=== PATIENT | male | born 2000 | race Caucasian/White ===

== ENCOUNTER 2020-09-19 16:27 | Outpatient (REF) | payer OTHER, SELFPAY | END 2020-09-19 16:28 | disposition home or self-care (01) | LOC: HO.LAB 16:27 | PROVIDERS: Visit Provider Internal Medicine | DX: Z20.822 Contact with and (suspected) exposure to COVID-19 (principal) | CPT/HCPCS: 36415; C9803; U0003 ==

== ENCOUNTER 2022-05-14 19:03 | Emergency (ER) | payer OTHER, SELFPAY ==
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
[2022-05-14 19:17] VITALS: BP 143/81; PULSE 73; RESP 18; TEMP 36.7; O2SAT 97; BMI 30.5
[2022-05-14 19:26] LABS: MANUAL DIFF FLAG NO
[2022-05-14 19:28] LABS: Basophils Absolute Auto 0.1 X10*3/uL (0.0-0.2); Basophils Percent Auto 0.7 % (0-2); Eosinophils Absolute Auto 0.1 X10*3/uL (0.0-0.4); Eosinophils Percent Auto 1.8 % (0-4); Hemoglobin 14.9 g/dl (14.0-18.0); Imm Gran Abs Auto 0.02 X10*3/uL (0.00-0.03); Imm Gran Pct Auto 0.3 % (0.0-0.4); Lymphocytes Absolute Auto 2.5 X10*3/uL (1.2-4.9); Lymphocytes Percent Auto 33.6 % (20-40); Mean Corpuscular HGB Conc 35.5 g/dl (31.0-36.0); Mean Corpuscular Volume 84.7 fL (80.0-98.0); Mean Platelet Volume 11.1 fL (9.4-12.4); Monocytes Absolute Auto 0.5 X10*3/uL (0.1-1.2); Monocytes Percent Auto 6.4 % (2-11); Neutrophils Absolute Auto 4.2 x10*3/uL (2.0-8.3); Neutrophils Percent Auto 57.2 % (45-73); Platelet Count 247 X10*3/uL (160-400); Red Blood Count 4.96 X10*6/uL (4.60-5.80); Red Cell Distribution Width 11.4 % (11.0-16.0); White Blood Count 7.3 X10*3/uL (4.8-10.8)
[2022-05-14 19:44] LABS: Anion Gap 16 (12-20); Blood Urea Nitrogen 12 mg/dL (9-16); Calcium 9.2 mg/dL (8.4-10.2); Carbon Dioxide 19 mmol/L (22-29); Chloride 107 mmol/L (96-108); Creatinine Clr Calc Pharmacy 144.8; Estimated Glomerular Filt Rate > 60; Glucose Random 116 mg/dL (60-115); Potassium 4.1 mmol/L (3.3-5.1); Sodium 138 mmol/L (135-145)
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
[2022-05-14 21:29] VITALS: BP 130/77; PULSE 57; RESP 15; TEMP 36.8; O2SAT 95
== END 2022-05-14 23:23 | disposition home or self-care (01) ==
PROVIDERS: Emergency Provider Emergency Medicine
DX: R51.9 Headache, unspecified (principal)
CPT/HCPCS: 36415; 70450; 80048; 85025; 99283; 99284

== ENCOUNTER 2025-06-18 12:38 | Emergency (ER) | payer SELFPAY ==
--- NOTE | ~2025-06-18 | XR_ITS ---
EXAMINATION: XR CHEST CLINICAL INFORMATION: cough COMPARISON: None available. TECHNIQUE: 2 views of the chest were obtained. FINDINGS: The cardiomediastinal silhouette is within normal limits. The lungs are well expanded. There is no focal consolidation, edema, or effusion. No pneumothorax. No acute osseous abnormality. XR/XR chest 2V IMPRESSION: No focal consolidation Electronically signed by: Serjio Jordan MD 06/18/2025 03:46 PM EDT RP
[2025-06-18 12:53] VITALS: BP 132/62; PULSE 70; RESP 18; TEMP 36.6; O2SAT 97; BMI 32.0
--- NOTE | 2025-06-18 12:58 | ED.URI ---
HPI - URI/Sore Throat General Chief Complaint: Upper Respiratory Symptoms Stated Complaint: flu symptoms Time Seen by Provider: 06/18/25 15:04 Source: patient, RN notes reviewed and old records reviewed Mode of arrival: ambulatory History of Present Illness ED Provider: Petrona Martinez PA-C [facility] Narrative: 25-year-old male with no significant past medical history presenting to the ED complaining of productive cough of phlegm, subjective fever, myalgias, headache x3 days. Admits to sick contacts. Denies CP/SOB, recent travel, difficulty or inability to swallow Related Data Allergies Allergy/AdvReac Type Severity Reaction Status Date / Time No Known Allergies Allergy Verified 06/18/25 12:55 Review of Systems Review of Systems: Yes all other systems are reviewed and are negative Constitutional: Constitutional: Reports as per [facility] Past Medical History Attestation statement: The following information was validated with the patient. Source: old records reviewed Social History Social History Advance Directives: No Advance Directives Information Provided: Yes Physical Exam Vital Signs: Vital Signs: Last Vital Signs Temp 97.9 F 06/18/25 12:53 Pulse 70 06/18/25 12:53 Resp 18 06/18/25 12:53 BP 132/62 06/18/25 12:53 Pulse Ox 97 06/18/25 12:53 O2 Del Method Room Air 06/18/25 12:53 BMI result Body Mass Index 32.0 Const: General: cooperative, healthy appearing and no acute distress Orientation/consciousness: patient oriented x3 Limitations: no limitations HEENT: Head: Yes normal to inspection and Yes atraumatic Ears: hearing grossly normal bilaterally General nose exam: Normal external nose present Face and sinus: Yes normal facial exam Mouth: Normal oral and palatal mucosa present and no muffled voice Throat: Yes posterior oropharynx normal, Yes uvula midline, No uvula laterally displaced and No uvular edema Eyes: General: appearance normal, both eyes and all related structures EOM: EOMs intact bilaterally Neck: Neck: Yes normal visual inspection and Yes no meningeal signs Resp: Effort & Inspection: normal respiratory effort and no respiratory distress Auscultation: clear to auscultation bilaterally, no rhonchi and no wheezes Cardio: Rate: regular rate Heart sounds: S1 normal heart sound present and S2 normal heart sound present Skin: Rashes: no rashes Wounds: no wounds Neuro: General: patient oriented x3, tone normal and no meningeal signs Cranial nerves: Yes CN's II-XII intact bilaterally Gait exam (Neuro): Normal gait present Extrem: General: Yes normal to inspection Course Course Course Narrative: This is an RME: Additional HPI, ROS, PE not included below will be deferred to primary provider. RME assessment and note performed by: Meche Pierce PA-C This is a 30-rwua-mwf-male who presents to the ER with complaints of cough, subjective fevers, body aches, and headache x 3 days. Reporting that his mother is sick with similar symptoms, but has not been around her. Works at [employer]. No chest pain or shortness of breath. Plan: Covid, flu, strep swab -1600--COVID/flu/RSV and rapid strep negative XR chest 2V IMPRESSION: No focal consolidation Results discussed with patient including worrisome signs and symptoms and strict return precautions, and when to return to the emergency department. They verbalized understanding and feel safe for discharge at this time. Medical Decision Making Medical Decision Making MDM Narrative: 25-year-old male with no significant past medical history presenting to the ED complaining of productive cough of phlegm, subjective fever, myalgias, headache x3 days. On exam vital signs stable, NAD, nontoxic appearing, lungs CTA. Concern for viral illness vs bronchitis vs pneumonia. Low suspicion for ACS/PE. No evidence of [employer]/retropharyngeal abscess Plan: CXR, viral testing, rapid strep Please refer to course for remaining clinical decision making, interpretation of labs/imaging results, and discussions with consultants and/or family members. Differential Diagnosis Differential Diagnoses: The differential diagnosis associated with the presentation includes As above Admission/Observation Consideration of admission/observation: Escalation of care including admission/observation considered Lab Data MDM Lab Attestation statement: I reviewed the patient's lab results. Labs: Lab Results 06/18/25 Range/Units 13:34 COVID-19 (BK) Negative (Negative) COVID-19 Clin Com See Note Influenza Type A ([facility]) Negative (Negative) Influenza Type B ([place]) Negative (Negative) Influenza A & B Note See Note S. pyogenes GrpA [place] Negative (Negative) Radiology Impression Discussion of test interpretation with radiology: I have reviewed the radiologist's reading. External Record Review External record reviewed: Inpatient record, Office record, Outpatient record, Prior outpatient labs, Prior outpatient radiology, Primary care record and Outside ED record Tests considered The following testing was considered but not selected: As above Chronic Conditions Patient?s care impacted by: Other Social Determinants Patient?s care significantly limited by Social Determinants of Health including: Other Social Determinant of Health Discharge Plan Discharge Clinical Impression: Upper respiratory infection Patient Disposition: Home, Self-Care Instructions: Upper Respiratory Infection (DC) Additional Instructions: You tested negative for COVID, flu, RSV and strep throat Your chest x-ray does not show pneumonia Please have close follow up with her doctor Rest Stay hydrated You have a virus No antibiotics are indicated at this time Make sure you are staying hydrated. Drink plenty of fluids. Rest Alternate Tylenol and Motrin at home as needed for body aches and fever Follow-up with your doctor. If symptoms persist or worsen return to the emergency department *If you are a child & not tolerating liquid or urinating for more than 6 hours, or fevers are uncontrolled with medications at home, return to the emergency department* Referrals: Physician,None [Primary Care Provider, Medical] - 5 days Print Language: Telugu
[2025-06-18 13:58] LABS: COVID-19 Test Negative (Negative); IDNOW Serial# 6674DD1D
[2025-06-18 14:02] LABS: IDNOW Serial# 08D9AD1C; Influenza B2 Negative (Negative)
[2025-06-18 14:16] LABS: IDNOW Serial# 6674DD1D; Strep A Nucleic Acid Negative (Negative)
[2025-06-18 16:19] VITALS: BP 135/69; PULSE 73; RESP 18; TEMP 36.6; O2SAT 98
== END 2025-06-18 16:21 | disposition home or self-care (01) ==
PROVIDERS: Physician Assistant Medical; Emergency Provider Emergency Medicine Emergency Medical Services
DX: J06.9 Acute upper respiratory infection, unspecified (principal)
CPT/HCPCS: 71046; 87502; 87635; 87651; 99282; 99283

== ENCOUNTER → 2025-06-18 15:13 | Outpatient (BNV) | payer SELFPAY | PROVIDERS: Emergency Provider Emergency Medicine Emergency Medical Services; Visit Provider Radiology Diagnostic Ultrasound | DX: R05.9 Cough, unspecified (principal) | CPT/HCPCS: 71046 ==

== ENCOUNTER 2025-07-25 05:36 | Emergency (ER) | payer OTHER, SELFPAY ==
[2025-07-25 05:39] VITALS: BP 138/90; PULSE 103; RESP 18; TEMP 37; O2SAT 98; BMI 35.9
[2025-07-25] MEDS: Lidocaine HCl 1 % 20 ML VIAL 10 ML INFILTRATI (06:21)
--- NOTE | 2025-07-25 06:31 | ED.WOUNDLAC ---
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 Related Data Allergies Allergy/AdvReac Type Severity Reaction Status Date / Time No Known Allergies Allergy Verified 07/25/25 05:40 Review of Systems Constitutional: Constitutional: Reports as per [facility] Social History Social History Smoked in Last 30 Days: No Advance Directives: No Advance Directives Information Provided: Yes Physical Exam Exam: Exam: Approximately right mid brow vertical laceration with the distal edge just touching the brow line, linear, full-thickness, 1.5 cm Vision is intact No periorbital swelling, no suprapebral edema Alert and oriented x4 Vital Signs: Vital Signs: Last Vital Signs Temp 98.6 F 07/25/25 05:39 Pulse 103 H 07/25/25 05:39 Resp 18 07/25/25 05:39 BP 138/90 H 07/25/25 05:39 Pulse Ox 98 07/25/25 05:39 O2 Del Method Room Air 07/25/25 05:39 BMI result Body Mass Index 35.9 Medications Administered Discontinued Medications Generic Name Dose Route Start Last Admin Trade Name Freq PRN Reason Stop Dose Admin Lidocaine HCl 10 ml 07/25/25 06:11 07/25/25 06:21 Lidocaine Hcl 1 % 20 Ml Vial INFILTRATI 07/25/25 06:12 10 ml ONCE ONE Administration Medical Decision Making Medical Decision Making [facility] Narrative: 6:33 AM 07/25/2025 (Dr. Natan Jones): Simple lack, verbal consent obtained, area washed out, we will come back to the ER in 7 days for removal, we will update tetanus Differential Diagnosis Differential Diagnoses: The differential diagnosis associated with the presentation includes (Eye injury, ligamentous injury, traumatic brain injury) Tests considered The following testing was considered but not selected: CT brain Procedures Laceration Laceration 1: Site: face Side (If applicable): right Size (cm): 1.5 Description: linear and clean Local Anesthetic: lidocaine 1% Amount of anesthesia used (mL): 5 Pre-repair: irrigated extensively Skin layer closed with: nylon Size (cm): 5-0 Number of sutures: 4 Technique: simple, interrupted Discharge Plan Discharge Clinical Impression: Facial laceration Patient Disposition: Home, Self-Care Instructions: Laceration (ED) Additional Instructions: Facial laceration repair to the emergency department with 4 sutures, these we will need to come out in 1 week, keep the area clean and dry you can wet it, cleaned with soap and water, tetanus updated and good until 2034 As discussed going on into the sun use a hat or sun block to minimize scarring you will have a degree of scarring Any concern for infection such as discharge of pus spreading redness which is very unusual in that area come back to the ER Print Language: Japanese
[2025-07-25] MEDS: Diphth,Pertus(ACell),Tet Adult 0.5 ML SYRINGE IM (07:04)
[2025-07-25 07:27] VITALS: BP 138/90; PULSE 103; RESP 18; TEMP 37; O2SAT 98
== END 2025-07-25 07:28 | disposition home or self-care (01) ==
PROVIDERS: Emergency Provider Emergency Medicine
DX: S01.81XA Laceration without foreign body of other part of head, initial encounter (principal); Z23 Encounter for immunization; X58.XXXA Exposure to other specified factors, initial encounter; Y93.9 Activity, unspecified; Y92.9 Unspecified place or not applicable; Y99.9 Unspecified external cause status
CPT/HCPCS: 12011; 90471; 90715; 99284; J2003

== ENCOUNTER 2025-08-02 02:13 | Emergency (ER) | payer SELFPAY ==
--- NOTE | 2025-08-02 02:30 | PC.NURSE ---
Pt presents to the ED for suture removal, aaox4, nad
[2025-08-02 02:43] VITALS: BP 131/73; PULSE 62; RESP 18; TEMP 36.9; O2SAT 98; BMI 32.1
--- NOTE | 2025-08-02 02:51 | ED.GENADULT ---
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 He was seen here 8 days ago for a facial laceration pain He accidentally hit above his right eye with a car door pain He had 4 sutures placed and was told to have them removed in a week. He denies any fevers or chills pain Denies any redness pain He still has some pain in the area he was struck Related Data Allergies Allergy/AdvReac Type Severity Reaction Status Date / Time No Known Allergies Allergy Verified 08/02/25 02:45 Review of Systems Constitutional: Constitutional: Denies body ache(s), Denies chills and Denies headache(s) Eyes: Eyes: Denies blurry vision ENT: Denies dizziness and Denies headache(s) Cardiovascular: Cardiovascular: Denies chest pain Integumentary/Breasts: Skin/Breast: Denies erythema, Denies rash and Reports wounds Neurologic: Denies dizziness and Denies headache(s) PMFSH Social History Social History Alcohol intake: never Smoked in Last 30 Days: No Advance Directives: No Advance Directives Information Provided: No Do you have a plan to hurt others: No Plan Physical Exam ED Vital Signs: Vital Signs - 24 hr 08/02/25 02:43 08/02/25 03:15 Temperature 98.4 F 98.4 F Pulse Rate 62 62 Respiratory Rate 18 18 Blood Pressure 131/73 131/73 Pulse Oximetry 98 98 BMI result Body Mass Index 32.1 Const General: healthy appearing, comfortable, no acute distress, alert and awake Nutritional Appearance: well nourished Orientation/consciousness: patient oriented x3 HENMT Head: Yes normocephalic and Yes atraumatic Eyes Eyelids: Yes eyelids normal Conjunctivae: conjunctivae normal Sclerae: sclerae normal Corneas: corneas normal Pupils: Equal, round and reactive pupils present EOM: EOMs intact bilaterally Neck Neck: Yes full ROM Resp Effort & Inspection: normal respiratory effort, able to speak in complete sentences and not labored Skin Other: Healing 1.5 cm laceration above the right eyebrow. There is a fibrous scab covering. No erythema, no purulence. General skin exam: elasticity normal Neuro General: patient oriented x3 Cranial nerves: Yes CN's II-XII intact bilaterally, Yes Equal, round and reactive pupils present and Yes Bilaterally intact EOM present Cognition (Neuro): normal cognition Extrem Other: Moving all extremities well without any obvious deformities Medical Decision Making Medical Decision Making MDM Narrative: 25-year-old male presents for evaluation of suture removal was. He denies any complaints or concerns related to the wound. There does not appear to be any infection. I was able to easily remove 4 sutures without any dehiscence. Discuss management of the wound with the patient and he will follow up with the PCP Differential Diagnosis Differential Diagnoses: The differential diagnosis associated with the presentation includes Suture removal Skin tear Puncture wound Laceration Discharge Plan Discharge Clinical Impression: Encounter for removal of sutures Patient Disposition: Home, Self-Care Instructions: Stitches Removal (ED) Additional Instructions: You had 4 sutures easily removed. Try not to ripped with a scab off all at once but let it fall off on its own. You may apply topical antibiotic as needed. Follow up with your primary doctor, return for new or worsening symptoms Interventions: ED Discharge Assessment Last Done: 08/02/25 03:15 Discharge Date/Time: 08/02/25 03:18 Print Language: [place]
[2025-08-02 03:15] VITALS: BP 131/73; PULSE 62; RESP 18; TEMP 36.9; O2SAT 98
== END 2025-08-02 03:18 | disposition home or self-care (01) ==
PROVIDERS: Emergency Provider Emergency Medicine
DX: S01.81XD Laceration without foreign body of other part of head, subsequent encounter (principal); Z48.02 Encounter for removal of sutures
CPT/HCPCS: 99284